=== PATIENT | male | born 1955 | race Caucasian/White ===

== ENCOUNTER 2018-12-22 12:39 | Emergency (ER) | payer OTHER ==
[~2018-12-22] VITALS: Wt 81.6 kg
[2018-12-22] MEDS ORDERED: PROAIR HFA0.09 MG/AC IH (12:56)
[2018-12-22] MEDS ORDERED: BUPROPION XL450 MG PO (12:57)
[2018-12-22] MEDS ORDERED: CHILDREN'S ASPI81 M1 PO (12:57)
[2018-12-22] MEDS ORDERED: CYPROHEPTADINE H4 M1 PO (12:58)
[2018-12-22 12:59] LABS: HEMATOCRIT 44.8 % (42.0-52.0); HEMOGLOBIN 15.3 g/dL (13.5-18.0); MEAN CELL VOLUME 89 fl (78-100); MEAN CORPUSCULAR HEMOGLOBIN 31 pg (27-31); MEAN CORPUSCULAR HGB CONC 34 g/dL (33-37); PLATELET COUNT 267 K/mm3 (130-400); RED BLOOD COUNT 5.01 M/mm3 (4.20-5.60); RED CELL DISTRIBUTION WIDTH 14.1 % (11.5-14.5); WHITE BLOOD COUNT 10.3 K/mm3 (4.8-10.8)
[2018-12-22] MEDS ORDERED: FUROSEMIDE20 MG PO (12:59)
[2018-12-22] MEDS ORDERED: CHEST CONGESTI400 MG PO (12:59)
[2018-12-22] MEDS ORDERED: ZESTRIL2.5 M1 PO (13:00)
[2018-12-22] MEDS ORDERED: GLUCOPHAGE PO (13:00)
[2018-12-22] MEDS ORDERED: ASMANEX HF200 MCG/Ac IH (13:01)
[2018-12-22] MEDS ORDERED: MULTIVITAMIN1 SGL PO (13:01)
[2018-12-22] MEDS ORDERED: GOOD NEIGHBOR150 MG PO (13:02)
[2018-12-22] MEDS ORDERED: RISPERDAL CON12.5 MG IM (13:02)
[2018-12-22] MEDS ORDERED: COUMADIN 5MG5 MG/TAB PO (13:03)
[2018-12-22] MEDS ORDERED: BRILINTA90 MG PO (13:03)
[2018-12-22] MEDS ORDERED: DIVALPROEX SOD500 MG PO (13:04)
[2018-12-22] MEDS ORDERED: LIPITOR 80MG80 MG PO (13:10)
[2018-12-22] MEDS ORDERED: TERBINAFINE250 MG PO (13:10)
[2018-12-22 13:21] LABS: LYMPHOCYTE 23 % (20-51); MONOCYTE 8 % (3-10); NEUTROPHILS 62 % (42-75)
[2018-12-22 13:31] LABS: ALBUMIN 4.2 g/dL (3.4-4.8); CALCIUM 10.4 mg/dL (8.8-10.0); POTASSIUM 4.3 mmol/L (3.5-5.1); TOTAL BILIRUBIN 0.5 mg/dL (0.2-1.2); TOTAL PROTEIN 7.8 g/dL (6.2-8.1); TROPONIN-I 0.04 ng/mL (<0.030)
[2018-12-22 14:44] LABS: PROTHROMBIN TIME 18.1 SECONDS (9.0-12.0)
[2018-12-22 14:46] LABS: D-DIMER 0.2 mg/L FEU (0.15-0.50)
[2018-12-22 16:56] VITALS: BP 86/64
== END 2018-12-22 16:40 | disposition short-term general hospital (02) ==
LOC: ED 12:39
PROVIDERS: Nurse Practitioner Family
DX: I21.4 Non-ST elevation (NSTEMI) myocardial infarction (principal); I95.9 Hypotension, unspecified; R79.89 Other specified abnormal findings of blood chemistry; J44.9 Chronic obstructive pulmonary disease, unspecified; I25.10 Atherosclerotic heart disease of native coronary artery without angina pectoris; I25.2 Old myocardial infarction; E11.9 Type 2 diabetes mellitus without complications; I10 Essential (primary) hypertension; F41.9 Anxiety disorder, unspecified; F17.210 Nicotine dependence, cigarettes, uncomplicated; Z79.82 Long term (current) use of aspirin; Z79.01 Long term (current) use of anticoagulants; Z95.828 Presence of other vascular implants and grafts
CPT/HCPCS: J2405; J7030